=== PATIENT | male | born 1950 | race Caucasian/White ===

== ENCOUNTER 2022-04-27 16:14 | Emergency (ER) | payer OTHER ==
[2022-04-27 16:23] VITALS: BP 148/94; PULSE 82; RESP 18; TEMP 98; BMI 23.3
== END 2022-04-27 16:35 | disposition home or self-care (01) ==
LOC: FER 16:14
DX: T63.441A Toxic effect of venom of bees, accidental (unintentional), initial encounter (principal)
CPT/HCPCS: 99282-25

== ENCOUNTER 2023-10-12 08:55 | Emergency (ER) | payer OTHER, BC ==
[2023-10-12 09:02] VITALS: BP 104/55; PULSE 96; RESP 17; TEMP 98.2; BMI 22.4
[2023-10-12] MEDS ORDERED: METHOCARBAMOL 500 MG TABLET ONE (09:36)
[2023-10-12] MEDS ORDERED: KETOROLAC TROMETHAMINE 30 MG/1 ML VIAL ONE (09:37)
[2023-10-12] MEDS: SODIUM CHLORIDE 0.9% 500 ML INFUS.BAG IV ONE (09:53)
[2023-10-12] MEDS: KETOROLAC TROMETHAMINE 30 MG/1 ML VIAL IVPUSH ONE (09:54)
[2023-10-12] MEDS: METHOCARBAMOL 500 MG TABLET PO ONE (09:54)
[2023-10-12 09:55] LABS: HEMATOCRIT 33.4 % (35.4-49); HEMOGLOBIN 11.8 G/dL (11.7-16.9); INR 1.25 (0.83-1.09); MCH 33.5 pg (25.7-33.7); MCHC 35.4 g/dl (32.0-35.9); MEAN CELL VOLUME 94.5 fl (80-96); MEAN PLT VOLUME 6.8 fl (7.5-11.1); PROTHROMBIN TIME (PATIENT) 14.5 SEC (9.7-13.0); RBC 3.53 10^6/uL (4.00-5.60); RDW 13.5 % (11.9-15.9); WHITE BLOOD COUNT 17.9 10^3/uL (4.0-10.8)
[2023-10-12 09:58] LABS: ACTIVATED PTT 28.2 SECONDS (25.2-36.5)
[2023-10-12 10:04] LABS: ALBUMIN 3.7 g/dl (3.4-5.0); BILIRUBIN,TOTAL 0.6 mg/dl (0.2-1); CALCIUM 8.7 mg/dl (8.5-10.1); POTASSIUM 3.7 mmol/L (3.5-5.1)
[2023-10-12 10:05] LABS: PLATELET ESTIMATE ADEQUATE
== END 2023-10-12 14:52 | disposition home or self-care (01) ==
LOC: FER 08:55
PROC: 3E0333Z Introduction of Anti-inflammatory into Peripheral Vein, Percutaneous Approach (ICD-10-PCS; principal; 2023-10-12)
DX: R07.81 Pleurodynia (principal); R06.02 Shortness of breath
CPT/HCPCS: 36415; 71046-TC-FY; 71275-TC; 74177-TC; 80053; 82550; 84484; 85027; 85379; 85610; 85730; 93005; 99285-25; Q9967